=== PATIENT | female | born 1970 | race Hispanic/Latino ===

== ENCOUNTER 2018-09-29 00:58 | Emergency (ER) | payer BC ==
[~2018-09-29] VITALS: Ht 152.4 cm; Wt 83.6 kg
--- OUTSIDE RECORDS SUMMARY | 2018-09-29 01:00 | XMS REPORT | Continuity of Care Document ---
Author Author [facility] Interface Address Unknown Phone Unavailable Problems Problem Status Onset Date Classification Date Reported Comments Source Pain in throat 05/26/2018 Diagnosis 05/26/2018 [facility] Viral upper respiratory tract infection 05/26/2018 Diagnosis 05/26/2018 [facility] Body mass index 30+ - obesity 05/26/2018 Diagnosis 05/26/2018 [facility] Body Mass Index 30+ - Obesity 05/26/2018 Problem 05/26/2018 [facility] Pain in Throat 05/26/2018 Problem 05/26/2018 [facility] Viral Upper Respiratory Tract Infection 05/26/2018 Problem 05/26/2018 [facility] LLE 729.5 CALF PAIN Active 12/12/2013 [facility] Blood in urine Active Diagnosis 04/03/2014 [facility] BMI 34.0-34.9,adult Active Problem 11/18/2017 [facility] Routine general medical examination at health care facility Active Diagnosis 04/03/2014 [facility] Throat pain Active Diagnosis 02/26/2014 [facility] Strep throat Active Diagnosis 02/26/2014 [facility] Encntr for general adult medical exam w/o abnormal findings Active Diagnosis 11/10/2017 [facility] Screening for breast cancer Active Diagnosis 11/10/2017 [facility] Family history of diabetes mellitus Active Diagnosis 11/10/2017 [facility] Leg cramps Active Diagnosis 12/20/2013 [facility] Calf pain Active Diagnosis 12/20/2013 [facility] Body Mass Index 34.0-34.9, adult Active Problem 02/27/2015 [facility] BMI 35.0-35.9,adult Active Problem 06/14/2015 [facility] Fatigue Active Diagnosis 06/14/2015 [facility] Low back pain Active Diagnosis 02/11/2015 [facility] Upper respiratory infection Active Diagnosis 06/18/2014 [facility] Sore throat Active Diagnosis 06/18/2014 [facility] Left low back pain Active Diagnosis 01/31/2015 [facility] Medications Medication Details Route Status Patient Instructions Ordering Provider Order Date Source Cipro 1 tablet Orally Active 250 MG Orally every 12 hrs Jeyson Sifuentes 11/17/2017 [facility] Cipro 1 tablet Orally Active 500 mg Orally Twice a day Kendra 06/13/2015 [facility] Naproxen 1 tablet as needed Orally Active 500 mg Orally every 12 hrs Beaver 01/28/2015 [facility] Flexeril 1 tablet Orally Active 10 mg Orally Three times a day as needed for pain Beaver 01/28/2015 [facility] Augmentin 1 tablet Orally Active 875-125 MG Orally Twice a day Beaver 04/23/2014 [facility] Augmentin 1 tablet Orally Active 500-125 MG Orally Twice a day Beaver 01/17/2014 [facility] Flexeril 1 tablet Orally Active 10 mg Orally once a night as needed Beaver 12/17/2013 [facility] Aleve 1 tablet as needed Orally Active 220 MG Orally PRN Lewis [facility] Aleve 1 tablet as needed Orally Active 220 MG Orally PRN Kendra [facility] Lidocaine Hydrochloride 20 MG/ML Mucous Membrane Topical Solution Lidocaine Viscous 2 % mucosal solution Take 15 mL every 3 hours by oral route as needed. Active [facility] Prednisone 20 MG Oral Tablet prednisone 20 mg tablet Take 1 tablet twice a day by oral route as directed for 3 days. Active [facility] Allergies, Adverse Reactions, Alerts Substance Category Reaction Severity Reaction type Status Date Reported Comments Source Stan Hives Moderate to Severe Allergy to substance 05/26/2018 [facility] Immunizations Immunization Date Given Site Status Last Updated Comments Source influenza, injectable, quadrivalent 04/24/2018 completed [facility] Tdap 07/11/2013 completed [facility] Results Order Name Results Value Reference Range Date Interpretation Comments Source RESULT negative 05/26/2018 [facility] SWAB LOCATION Left and Right tonsillar pillars 05/26/2018 [facility] Ext Lower Venous Doppler Unilat US Ext Lower Venous Doppler Unilat US LEFT LOWER EXTREMITY VENOUS DOPPLER HX: calf pain COMMENT: The deep venous system of the left lower extremity was interrogated from inguinal ligament to the popliteal fossae utilizing high-resolution duplex sonography . The deep veins are readily visualized and easily compressible. There is normal spontaneous, phasic flow by spectral Doppler wave form analysis. This constitutes a negative exam. CONCLUSION: Negative left lower extremity venous Doppler. SL: 12 12/12/2013 - - Read by: Fredi Spence MD Dictated Date/time: 12/12/13 18:00 Electronically Signed by: Fredi Spence MD 12/12/13 18:01 FINAL REPORT [facility] Vital Signs Vital Sign Value Date Comments Source Diastolic (mm Hg) 74 05/26/2018 [facility] Height 60 05/26/2018 [facility] Systolic (mm Hg) 119 05/26/2018 [facility] Weight 180 05/26/2018 [facility] Weight 176 11/02/2017 [facility] Height 60 11/02/2017 [facility] Temperature Oral (F) 98.0 F 11/02/2017 [facility] Heart Rate 77 11/02/2017 [facility] Diastolic (mm Hg) 68 11/02/2017 [facility] Systolic (mm Hg) 120 11/02/2017 [facility] Weight 182 06/12/2015 [facility] Height 60 06/12/2015 [facility] Heart Rate 77 06/12/2015 [facility] Diastolic (mm Hg) 90 06/12/2015 [facility] Systolic (mm Hg) 112 06/12/2015 [facility] Weight 180 02/07/2015 [facility] Height 60 02/07/2015 [facility] Temperature Oral (F) 98.6 F 02/07/2015 [facility] Heart Rate 89 02/07/2015 [facility] Diastolic (mm Hg) 84 02/07/2015 [facility] Systolic (mm Hg) 120 02/07/2015 [facility] Weight 181 01/28/2015 [facility] Height 60 01/28/2015 [facility] Heart Rate 80 01/28/2015 [facility] Diastolic (mm Hg) 68 01/28/2015 [facility] Systolic (mm Hg) 100 01/28/2015 [facility] Weight 178 04/23/2014 [facility] Height 60 04/23/2014 [facility] Temperature Oral (F) 98.3 F 04/23/2014 [facility] Heart Rate 84 04/23/2014 [facility] Diastolic (mm Hg) 80 04/23/2014 [facility] Systolic (mm Hg) 122 04/23/2014 [facility] Weight 176 03/27/2014 [facility] Height 60 03/27/2014 [facility] Temperature Oral (F) 98.2 F 03/27/2014 [facility] Heart Rate 76 03/27/2014 [facility] Diastolic (mm Hg) 72 03/27/2014 [facility] Systolic (mm Hg) 122 03/27/2014 [facility] Weight 176 01/17/2014 [facility] Height 60 01/17/2014 [facility] Temperature Oral (F) 98.3 F 01/17/2014 [facility] Heart Rate 104 01/17/2014 [facility] Diastolic (mm Hg) 80 01/17/2014 [facility] Systolic (mm Hg) 110 01/17/2014 [facility] Weight 179 12/12/2013 [facility] Height 60 12/12/2013 [facility] Temperature Oral (F) 98.3 F 12/12/2013 [facility] Heart Rate 88 12/12/2013 [facility] Diastolic (mm Hg) 82 12/12/2013 [facility] Systolic (mm Hg) 128 12/12/2013 [facility] Encounters Location Location Details Encounter Type Encounter Number Reason For Visit Attending Provider ADM Date DC Date Status Source [facility] leg pain [id number] 12/12/2013 12/12/2013 [facility] leg pain [id number] 12/12/2013 12/12/2013 [facility] leg pain [id number] 12/12/2013 12/12/2013 [facility] leg pain [id number] 12/12/2013 12/12/2013 [facility] leg pain [id number] 12/12/2013 12/12/2013 [facility] leg pain [id number] 12/12/2013 12/12/2013 [facility] leg pain [id number] 12/12/2013 12/12/2013 [facility] leg pain [id number] 12/12/2013 12/12/2013 [facility] leg pain [id number] 12/12/2013 12/12/2013 [facility] leg pain [id number] 12/12/2013 12/12/2013 [facility] [id number] Faith Martinez 12/12/2013 12/13/2013 [facility] Lab result- Rx sent [id number] 12/17/2013 12/17/2013 [facility] Lab result- Rx sent [id number] 12/17/2013 12/17/2013 [facility]- Rx sent [id number] 12/17/2013 12/17/2013 [facility] Lab result- Rx sent [id number] 12/17/2013 12/17/[address] [facility] Lab result- Rx sent [id number] 12/17/2013 12/17/2013 [facility] Lab result- Rx sent [id number] 12/17/2013 12/17/[address] [facility] Lab result- Rx sent [id number] 12/17/2013 12/17/[address] [facility] Lab result- Rx sent [id number] 12/17/2013 12/17/2013 [facility] Lab result- Rx sent [id number] 12/17/2013 12/17/2013 [facility] Lab result- Rx sent [id number] 12/17/2013 12/17/2013 [facility] Lab result- Rx sent [id number] 12/17/2013 12/17/2013 [facility] SORE THROAT [id number] 01/17/2014 01/17/2014 [facility] SORE THROAT [id number] 01/17/2014 01/17/2014 [facility] SORE THROAT [id number] 01/17/2014 01/17/2014 [facility] SORE THROAT [id number] 01/17/2014 01/17/2014 [facility] SORE THROAT [id number] 01/17/2014 01/17/2014 [facility] SORE THROAT [id number] 01/17/2014 01/17/2014 [facility] SORE THROAT [id number] 01/17/2014 01/17/2014 [facility] SORE THROAT [id number] 01/17/2014 01/17/2014 [facility] SORE THROAT [id number] 01/17/2014 01/17/2014 [facility] PHYSICAL [id number] 03/27/2014 03/27/2014 [facility] PHYSICAL [id number] 03/27/2014 03/27/2014 [facility] PHYSICAL [id number] 03/27/2014 03/27/2014 [facility] PHYSICAL [id number] 03/27/2014 03/27/2014 [facility] PHYSICAL [id number] 03/27/2014 03/27/2014 [facility] PHYSICAL [id number] 03/27/2014 03/27/2014 [facility] PHYSICAL [id number] 03/27/2014 03/27/2014 [facility] PHYSICAL [id number] 03/27/2014 03/27/2014 [facility] Lab results- urine repeat [id number] 04/02/2014 04/02/2014 [facility] Lab results- urine repeat [id number] 04/02/2014 04/02/2014 [facility] Lab results- urine repeat [id number] 04/02/2014 04/02/2014 [facility] Lab results- urine repeat [id number] 04/02/2014 04/02/2014 [facility] Lab results- urine repeat [id number] 04/02/2014 04/02/2014 [facility] Lab results- urine repeat [id number] 04/02/2014 04/02/2014 [facility] Lab results- urine repeat [id number] 04/02/2014 04/02/2014 [facility] Lab results- urine repeat [id number] 04/02/2014 04/02/2014 [facility] SINUS [id number] 04/23/2014 04/23/2014 [facility] SINUS [id number] 04/23/2014 04/23/2014 [facility] SINUS [id number] 04/23/2014 04/23/2014 [facility] SINUS [id number] 04/23/2014 04/23/2014 [facility] SINUS [id number] 04/23/2014 04/23/2014 [facility] SINUS [id number] 04/23/2014 04/23/2014 [facility] BACK PAIN [id number] 01/28/2015 01/28/2015 [facility] BACK PAIN [id number] 01/28/2015 01/28/2015 [facility] BACK PAIN [id number] 01/28/2015 01/28/2015 [facility] BACK PAIN [id number] 01/28/2015 01/28/2015 [facility] BACK PAIN [id number] 01/28/2015 01/28/2015 [facility] XRAY RESULTS [id number] 02/07/2015 02/07/2015 [facility] XRAY RESULTS [id number] 02/07/2015 02/07/2015 [facility] XRAY RESULTS [id number] 02/07/2015 02/07/2015 [facility] XRAY RESULTS [id number] 02/07/2015 02/07/2015 [facility] need referral [id number] 02/26/2015 02/26/2015 [facility] need referral [id number] 02/26/2015 02/26/2015 [facility] need referral [id number] 02/26/2015 02/26/2015 [facility] THYROID CHECK [id number] 06/12/2015 06/12/2015 [facility] THYROID CHECK [id number] 06/12/2015 06/12/2015 [facility] Unknown [id number] 06/13/2015 06/13/2015 [facility] Unknown [id number] 06/13/2015 06/13/2015 [facility] [place] [facility] - [id number] Vásquez, [facility] [address] [place] [address], Ph. [id number] Cristela Vásquez 05/26/2018 [facility] Procedures Procedure Code Date Perfomer Comments Source Appendectomy [facility]
--- OUTSIDE RECORDS SUMMARY | 2018-09-29 01:01 | XMS REPORT ---
Author Author Eva Gardner Organization [employer] Address Unknown Phone Unavailable Care Team Providers Care Tosser Name Role Phone Eva Gardner Unavailable Allergies, Adverse Reactions, Alerts Substance Reaction Event Type Guaifenesin Info Not Available Drug Allergy Encounters Encounter Location Date PHYSICAL [facility] Mar 27, 2014 Lab results- urine repeat [facility] Apr 02, [address] [facility] Apr 23, [address] [facility] January 28, 2015 Lab result- Rx sent [facility] December 17, [address] [facility] Jun 13, [address] [facility] December 12, [address] [facility] January 17, [address] [facility] Jun 12, [address] [facility] February 07, [address] [facility] Feb 26, 2015 Problems Problem Type Condition ICD-9 Code Onset Dates Condition Status Assessment Fatigue R53.83 Active Assessment BMI 35.0-35.9,adult Z68.35 Active Problem BMI 35.0-35.9,adult Z68.35 Active Medications Medication Code System Code Instructions Start Date End Date Status Dosage Aleve MEDISPAN [address]-85 220 MG Orally PRN Active 1 tablet as needed Social History Social History Element Qualifiers Date Reported Last Bone Density: . never Jun 12, 2015 Depression Screening: . negative Jun 12, 2015 Flu Vaccine: . 2014Jun 12, 2015 Last Colonoscopy: . never Jun 12, 2015 children . 2 Jun 12, 2015 Tobacco Use: . Are you a: never smoker Jun 12, 2015 Marital Status: . Jun 12, 2015 Vital Signs Date/Time: Jun 12, 2015 Weight 182 lbs Height 60 in Cardiac Monitoring Heart Rate 77 /min Blood Pressure Diastolic 90 mm Hg Blood Pressure Systolic 112 mm Hg Summary Purpose eClinicalWorks Submission
--- OUTSIDE RECORDS SUMMARY | 2018-09-29 01:01 | XMS REPORT | Encounter Summary ---
Author Organization Unknown Address [address] [place] [id number] Phone [phone] Care Team Providers Care Call Center Receptionist Name Role Phone Faith Martinez 3 [phone] Reason for Visit Medical Complaint Instructions 1. Viral upper respiratory tract infection prednisone 20 mg tablet 2. Pain in throat rapid strep group A, throat sore throat: care instructions Lidocaine Viscous 2 % mucosal solution 3. Body mass index 30+ - obesity body mass index: care instructions learning about healthy weight Discussion Note Pt is in NAD; Verbalizes understanding of all instructions with no questions at this time. Plan of Care Patient Instructions Stop advil cold and sinus. Take tylenol over the counter for pain/headache/fever as per pacakge insert. Take flonase as needed for congestion, runny nose, sneezing and watery eyes. [place] one spray in each nostril twice a day. Take a warm, steamy shower, blow your nose thereafter, and spray in each nostril. Tilt your head up for about 10 seconds and breath through your mouth. Do not sniff or snort the medication in or else the medication will go to your throat and not be absorbed appropriately. Take steroids with food as directed. Do not take ibuprofen or naproxen while on steroids. Take medications as prescribed and follow up with a PCP within 2-3 if symptoms worsen as discussed. Recommend follow a low sodium/fat/carb diet and exercise 30-45 mins/d 3-4 days a week once symptoms resolve. Reminders Provider Appointments None recorded. Lab Rapid Strep Group a, Throat 05/26/2018 [facility] Referral None recorded. Procedures None recorded. Surgeries None recorded. Imaging None recorded. Medications Name Start Date Lidocaine Viscous 2 % mucosal solution Take 15 mL every 3 hours by oral route as needed. prednisone 20 mg tablet Take 1 tablet twice a day by oral route as directed for 3 days. Medications Administered None recorded. Vitals Height Weight BMI Blood Pressure 5 ft 180 lbs 35.2 kg/m2 119/74 mm[Hg] Lab Results Date Name Specimen Result Interpretation Description Value Range Status Address Rapid Strep Group a, Throat Result negative [facility]: [address] [place] [address] Swab Location Left and Right tonsillar pillars [facility]: [address] [place] [address] Allergies Code Code System Name Reaction Severity Status Onset 5032 RxNorm Higinioaifenfox Hives Moderate to Severe Active Problems Name Status Onset Date Source Body Mass Index 30+ - Obesity Active 05/26/2018 Pain in Throat Active 05/26/2018 Viral Upper Respiratory Tract Infection Active 05/26/2018 Procedures Date Name Performed by Appendectomy Information not available Information not available Vaccine List Vaccine Type influenza, injectable, quadrivalent 04/24/2018 Tdap 07/11/2013 Social History Smoking Status Never Smoker Past Encounters 05/26/2018 Viral Upper Respiratory Tract Infection; Pain in Throat; Body Mass Index 30+ - Obesity Cristela Vásquez, ENVIRONMENTAL TEST TECHNICIAN-C: [address] [place] [address], Ph. History of Present Illness [id number]-Ebw Reported By: Patient HPI: Duration: 3 days. Context: no ill contacts, no tick/insect bites, no recent travel, no new medications. Associated Symptoms: no fever/chills, no muscle aches, no rash, no lethargy, headache, cold symptoms, nasal passage blockage (stuffiness), nasal discharge; sore throat, bilateral ear pressure, sinus pressure, and headache. Modifying Factors nothing gives relief Note:
Review of Systems:ROS as noted in the HPI Review of Systems Basic Reported By: Patient Physical Exam Adult Basic, Adult Female Complete Reported By: Patient Constitutional: General Appearance: obese. Level of Distress: NAD. Ambulation: ambulating normally Psychiatric: Mental Status: active and alert. Orientation: to time, to place, to person Eyes: Lids and Conjunctivae: non-injected, no discharge, no pallor. Corneas: grossly intact. Lens: clear Huk-Ejyw-Humfh-Throat: Ears: no lesions on external ear, no outer ear tenderness, EACs clear, TMs clear. Hearing: no hearing loss. Nose: no lesions on external nose, nares patent, no septal deviation, nasal passages clear, no sinus tenderness, nasal discharge--rhinorrhea, post nasal drip; B/L NTs pink and edematous. Lips, Teeth, and Gums: no mouth or lip ulcers, no bleeding gums, normal dentition. Oropharynx: moist mucous membranes, no erythema, no exudates, tonsils not enlarged Neck: Neck: supple. Lymph Nodes: no cervical LAD Lungs: Respiratory effort: no dyspnea, no tachypnea, no use of accessory muscles, no intercostal retractions. Auscultation: breath sounds normal Cardiovascular: Heart Auscultation: RRR, no murmurs Neurologic: Gait and Station: normal gait, normal station. Cranial Nerves: grossly intact
--- OUTSIDE RECORDS SUMMARY | 2018-09-29 01:01 | XMS REPORT ---
Author Author Sakshi Boyce Organization [employer] Address Unknown Phone Unavailable Care Team Providers Care Grapple Skidder Operator Name Role Phone Sakshi Boyce Unavailable Encounters Encounter Location Date PHYSICAL [facility] Mar 27, 2014 Lab results- urine repeat [facility] Apr 02, 2014 Lab result- Rx sent [facility] December 17, 2013 leg pain [facility] December 12, 2013 SORE THROAT [facility] January 17, 2014 Problems Problem Type Condition ICD-9 Code Onset Dates Condition Status Assessment Blood in urine 599.70 Active Social History Social History Element Qualifiers Date Reported Fall Risk: . 12/2013Mar 27, 2014 Flu Vaccine: . 2012Mar 27, 2014 children . 2 Mar 27, 2014 Marital Status: . Mar 27, 2014 Summary Purpose eClinicalWorks Submission
--- OUTSIDE RECORDS SUMMARY | 2018-09-29 01:01 | XMS REPORT ---
Author Author Sakshi Boyce Organization [employer] Address Unknown Phone Unavailable Care Team Providers Care Air Traffic Coordinator Name Role Phone Sakshi Boyce CP Unavailable Allergies, Adverse Reactions, Alerts Substance Reaction Event Type Guaifenesin Info Not Available Drug Allergy Encounters Encounter Location Date PHYSICAL [facility] Mar 27, 2014 Lab results- urine repeat [facility] Apr 02, 2014 SINUS [facility] Apr 23, 2014 Lab result- Rx sent [facility] December 17, 2013 leg pain [facility] December 12, 2013 SORE THROAT [facility] January 17, 2014 Problems Problem Type Condition ICD-9 Code Onset Dates Condition Status Assessment Upper respiratory infection 465.9 Active Assessment Sore throat 462 Active Problem Body Mass Index 34.0-34.9, adult V85.34 Active Medications Medication Code System Code Instructions Start Date End Date Status Dosage Augmentin MEDISPAN [address]-88 875-125 MG Orally Twice a day Apr 23, 2014 Apr 30, 2014 Active 1 tablet Social History Social History Element Qualifiers Date Reported Fall Risk: . 12/2013Apr 23, 2014 Flu Vaccine: . 2012Apr 23, 2014 children . 2 Apr 23, 2014 Marital Status: . Apr 23, 2014 Family history Qualifier Description Comment Date Reported Father alive Comment not available Apr 23, 2014 Vital Signs Date/Time: Apr 23, 2014 Weight 178 lbs Height 60 in Temperature 98.3 F Cardiac Monitoring Heart Rate 84 /min Blood Pressure Diastolic 80 mm Hg Blood Pressure Systolic 122 mm Hg Summary Purpose eClinicalWorks Submission
--- OUTSIDE RECORDS SUMMARY | 2018-09-29 01:01 | XMS REPORT | Summary of Care ---
Author Organization Unknown Address Unknown Phone Unavailable Encounter [facility] Encntr_kb(DEBORAH) [id number] Date(s): 12/12/13 - 12/12/13 [facility] [address] Discharge Disposition: Home Physician Attending: Faith Martinez DO Physician_Referring: Faith Martinez DO Reason for Visit LLE 729.5 CALF PAIN Problem List No data available for this section Allergies, Adverse Reactions, Alerts No data available for this section Medications No data available for this section Medications Administered During Your Visit No data available for this section Immunizations No data available for this section
--- OUTSIDE RECORDS SUMMARY | 2018-09-29 01:01 | XMS REPORT ---
Author Author Faith Martinez [facility] eClinical[employer] Address Unknown Phone Unavailable Care Team Providers Care Tipple Operator Name Role Phone Faith Martinez Unavailable Encounters Encounter Location Date PHYSICAL [facility] Mar 27, 2014 Lab results- urine repeat [facility] Apr 02, 2014 SINUS [facility] Apr 23, 2014 BACK PAIN [facility] January 28, 2015 Lab result- Rx sent [facility] December 17, 2013 leg pain [facility] December 12, 2013 SORE THROAT [facility] January 17, 2014 XRAY RESULTS [facility] February 07, 2015 need referral [facility] Feb 26, 2015 Problems Problem Type Condition ICD-9 Code Onset Dates Condition Status Problem Body Mass Index 34.0-34.9, adult V85.34 Active Social History Social History Element Qualifiers Date Reported Fall Risk: . 12/2013February 07, 2015 Flu Vaccine: . 2012February 07, 2015 children . 2 February 07, 2015 Marital Status: . February 07, 2015 Summary Purpose eClinicalWorks Submission
--- OUTSIDE RECORDS SUMMARY | 2018-09-29 01:01 | XMS REPORT ---
Author Author Faith Aguilera Organization [employer] Address Unknown Phone Unavailable Care Team Providers Care Assistant Sales Center Manager Name Role Phone Faith Aguilera Unavailable Allergies No Known Allergies Problems Problem Type Condition Code Onset Dates Condition Status Problem BMI 34.0-34.9,adult Z68.34 Active Medications Medication Code System Code Instructions Start Date End Date Status Dosage Cipro [facility] [id number] 250 MG Orally every 12 hrs November 17, 2017 November 22, 2017 Active 1 tablet Results No Known Results Summary Purpose eClinicalWorks Submission
--- OUTSIDE RECORDS SUMMARY | 2018-09-29 01:01 | XMS REPORT ---
Author Author Sakshi Boyce Organization [employer] Address Unknown Phone Unavailable Care Team Providers Care Anime Designer Name Role Phone Sakshi Boyce Unavailable Encounters Encounter Location Date Lab result- Rx sent [facility] December 17, 2013 Medications Medication Code System Code Instructions Start Date End Date Status Dosage Flexeril MEDISPAN [address]-52 10 mg Orally once a night as needed December 17, 2013 Feb 15, 2014 Active 1 tablet Social History Social History Element Qualifiers Date Reported Fall Risk: . 12/2013December 12, 2013 Flu Vaccine: . 2012December 12, 2013 children . 2 December 12, 2013 Marital Status: . December 12, 2013 Summary Purpose eClinicalWorks Submission
--- OUTSIDE RECORDS SUMMARY | 2018-09-29 01:01 | XMS REPORT ---
Author Author Sakshi Boyce Organization [employer] Address Unknown Phone Unavailable Care Team Providers Care Drinking Water Technician Name Role Phone Sakshi Boyce CP Unavailable Allergies, Adverse Reactions, Alerts Substance Reaction Event Type Guaifenesin Info Not Available Drug Allergy Encounters Encounter Location Date Lab result- Rx sent [facility] December 17, 2013 leg pain [facility] December 12, 2013 SORE THROAT [facility] January 17, 2014 Problems Problem Type Condition ICD-9 Code Onset Dates Condition Status Assessment Throat pain 784.1 Active Assessment Strep throat 034.0 Active Medications Medication Code System Code Instructions Start Date End Date Status Dosage Augmentin MEDISPAN [address]-06 500-125 MG Orally Twice a day January 17, 2014 January 27, 2014 Active 1 tablet Flexeril MEDISPAN [address]-69 10 mg Orally once a night as needed December 17, 2013 Feb 15, 2014 Active 1 tablet Social History Social History Element Qualifiers Date Reported Fall Risk: . 12/2013January 17, 2014 Flu Vaccine: . 2012January 17, 2014 children . 2 January 17, 2014 Marital Status: . January 17, 2014 Family history Qualifier Description Comment Date Reported Father alive Comment not available January 17, 2014 Vital Signs Date/Time: January 17, 2014 Weight 176 lbs Height 60 in Temperature 98.3 F Cardiac Monitoring Heart Rate 104 /min Blood Pressure Diastolic 80 mm Hg Blood Pressure Systolic 110 mm Hg Results DEPO MEDROL 40MG X3 UNITS ROCEPHIN 250MG X2 RAPID STREP DECADRON 1MGx4 Summary Purpose eClinicalWorks Submission
--- OUTSIDE RECORDS SUMMARY | 2018-09-29 01:01 | XMS REPORT ---
Author Author Zoran Saucedo Organization [employer] Address Unknown Phone Unavailable Care Team Providers Care Sheet Metal Supervisor Name Role Phone Zoran Saucedo CP Unavailable Allergies, Adverse Reactions, Alerts Substance Reaction Event Type Guaifenesin Info Not Available Drug Allergy Problems Problem Type Condition Code Onset Dates Condition Status Assessment Encntr for general adult medical exam w/o abnormal findings Z00.00 Active Assessment Screening for breast cancer Z12.39 Active Problem BMI 34.0-34.9,adult Z68.34 Active Assessment Family history of diabetes mellitus Z83.3 Active Assessment BMI 34.0-34.9,adult Z68.34 Active Medications Medication Code System Code Instructions Start Date End Date Status Dosage Aleve [facility] [id number] 220 MG Orally PRN Active 1 tablet as needed Vital Signs Date/Time: November 02, 2017 BMI 34.37 Index Weight 176 lbs Height 60 in Temperature 98.0 F Cardiac Monitoring Heart Rate 77 /min Blood Pressure Diastolic 68 mm Hg Blood Pressure Systolic 120 mm Hg Results No Known Results Summary Purpose eClinicalWorks Submission
--- OUTSIDE RECORDS SUMMARY | 2018-09-29 01:01 | XMS REPORT ---
Author Author Eva Gardner [employer] Address Unknown Phone Unavailable Care Team Providers Care Quill Stripper Name Role Phone Eva Gardner CP Unavailable Encounters Encounter Location Date PHYSICAL [facility] Mar 27, 2014 Lab results- urine repeat [facility] Apr 02, 2014 SINUS [facility] Apr 23, 2014 BACK PAIN [facility] January 28, 2015 Lab result- Rx sent [facility] December 17, 2013 Unknown [facility] Jun 13, 2015 leg pain [facility] December 12, 2013 SORE THROAT [facility] January 17, 2014 THYROID CHECK [facility] Jun 12, 2015 XRAY RESULTS [facility] February 07, 2015 need referral [facility] Feb 26, 2015 Problems Problem Type Condition ICD-9 Code Onset Dates Condition Status Problem BMI 35.0-35.9,adult Z68.35 Active Medications Medication Code System Code Instructions Start Date End Date Status Dosage Cipro MEDISPAN [address]-03 500 mg Orally Twice a day Jun 13, 2015 Jun 18, 2015 Active 1 tablet Social History Social History Element Qualifiers Date Reported Last Bone Density: . never Jun 12, 2015 Depression Screening: . negative Jun 12, 2015 Flu Vaccine: . 2014Jun 12, 2015 Last Colonoscopy: . never Jun 12, 2015 children . 2 Jun 12, 2015 Tobacco Use: . Are you a: never smoker Jun 12, 2015 Marital Status: . Jun 12, 2015 Summary Purpose eClinicalWorks Submission
--- OUTSIDE RECORDS SUMMARY | 2018-09-29 01:01 | XMS REPORT ---
Author Author Sakshi Boyce Organization [employer] Address Unknown Phone Unavailable Care Team Providers Care Linseed Oil Temperer Name Role Phone Sakshi Boyce CP Unavailable Allergies, Adverse Reactions, Alerts Substance Reaction Event Type Guaifenesin Info Not Available Drug Allergy Encounters Encounter Location Date PHYSICAL [facility] Mar 27, 2014 Lab results- urine repeat [facility] Apr 02, 2014 Lab result- Rx sent [facility] December 17, [address] [facility] December 12, [address] [facility] January 17, 2014 Problems Problem Type Condition ICD-9 Code Onset Dates Condition Status Assessment Routine general medical examination at health care facility V70.0 Active Social History Social History Element Qualifiers Date Reported Fall Risk: . 12/2013Mar 27, 2014 Flu Vaccine: . 2012Mar 27, 2014 children . 2 Mar 27, 2014 Marital Status: . Mar 27, 2014 Vital Signs Date/Time: Mar 27, 2014 Weight 176 lbs Height 60 in Temperature 98.2 F Cardiac Monitoring Heart Rate 76 /min Blood Pressure Diastolic 72 mm Hg Blood Pressure Systolic 122 mm Hg Summary Purpose eClinicalWorks Submission
--- OUTSIDE RECORDS SUMMARY | 2018-09-29 01:01 | XMS REPORT ---
Author Author Sakshi Boyce [facility] eClinicalWorks Address Unknown Phone Unavailable Care Team Providers Care Studio Owner Name Role Phone Sakshi Boyce Unavailable Allergies, Adverse Reactions, Alerts Substance Reaction Event Type Guaifenesin Info Not Available Drug Allergy Encounters Encounter Location Date Lab result- Rx sent [facility] December 17, 2013 leg pain [facility] December 12, 2013 Problems Problem Type Condition ICD-9 Code Onset Dates Condition Status Assessment Leg cramps 729.82 Active Assessment Calf pain 729.5 Active Social History Social History Element Qualifiers Date Reported Fall Risk: . 12/2013December 12, 2013 Flu Vaccine: . 2012December 12, 2013 children . 2 December 12, 2013 Marital Status: . December 12, 2013 Vital Signs Date/Time: December 12, 2013 Weight 179 lbs Height 60 in Temperature 98.3 F Cardiac Monitoring Heart Rate 88 /min Blood Pressure Diastolic 82 mm Hg Blood Pressure Systolic 128 mm Hg Results COMPREHENSIVE METABOLIC PANEL ALBUMIN/GLOBULIN RATIO(-1.0-2.5 (calc)) 1.2 GLOBULIN(-1.9-3.7 g/dL (calc)) 3.4 ALKALINE PHOSPHATASE(-33-115 U/L) 63 BILIRUBIN, TOTAL(-0.2-1.2 mg/dL) 0.5 CHLORIDE(-98-110 mmol/L) 102 ALT(-6-29 U/L) 18 POTASSIUM(-3.5-5.3 mmol/L) 3.9 AST(-10-30 U/L) 18 SODIUM(-135-146 mmol/L) 137 BUN/CREATININE RATIO(-6-22 (calc)) NOT APPLICABLE eGFR (-> OR=60 mL/min/1.73m2) 92 CALCIUM(-8.6-10.2 mg/dL) 9.2 CARBON DIOXIDE(-19-30 mmol/L) 24 ALBUMIN(-3.6-5.1 g/dL) 4.1 PROTEIN, TOTAL(-6.1-8.1 g/dL) 7.5 GLUCOSE(-65-99 mg/dL) 94 UREA NITROGEN (BUN)(-7-25 mg/dL) 9 CREATININE(-0.50-1.10 mg/dL) 0.90 eGFR NON-AFR. BRITISH(-> OR=60 mL/min/1.73m2) 79 CBC (H/H, RBC, INDICES, WBC, PLT) MCHC(-32.0-36.0 g/dL) 34.0 MCH(-27.0-33.0 pg) 29.4 PLATELET COUNT(-140-400 Thousand/uL) 268 RDW(-11.0-15.0 %) 14.6 HEMATOCRIT(-35.0-45.0 %) 39.6 MCV(-80.0-100.0 fL) 86.5 RED BLOOD CELL COUNT(-3.80-5.10 Million/uL) 4.57 HEMOGLOBIN(-11.7-15.5 g/dL) 13.5 WHITE BLOOD CELL COUNT(-3.8-10.8 Thousand/uL) 10.9 Summary Purpose eClinicalWorks Submission
--- OUTSIDE RECORDS SUMMARY | 2018-09-29 01:01 | XMS REPORT ---
Author Author Sakshi Boyce eClinical[employer] Address Unknown Phone Unavailable Care Team Providers Care Network Security Consultant Name Role Phone Sakshi Boyce Unavailable Allergies, Adverse Reactions, Alerts Substance Reaction Event Type Guaifenesin Info Not Available Drug Allergy Encounters Encounter Location Date PHYSICAL [facility] Mar 27, 2014 Lab results- urine repeat [facility] Apr 02, 2014 SINUS [facility] Apr 23, 2014 BACK PAIN [facility] January 28, 2015 Lab result- Rx sent [facility] December 17, 2013 leg pain [facility] December 12, 2013 SORE THROAT [facility] January 17, 2014 XRAY RESULTS [facility] February 07, 2015 Problems Problem Type Condition ICD-9 Code Onset Dates Condition Status Assessment Low back pain 724.2 Active Problem Body Mass Index 34.0-34.9, adult V85.34 Active Medications Medication Code System Code Instructions Start Date End Date Status Dosage Naproxen MEDISPAN [address]-29 500 mg Orally every 12 hrs January 28, 2015 Feb 11, 2015 Active 1 tablet as needed Flexeril Unknown 0 10 mg Orally Three times a day as needed for pain January 28, 2015 Feb 27, 2015 Active 1 tablet Aleve MEDISPAN [address]-68 220 MG Orally PRN Active 1 tablet as needed Social History Social History Element Qualifiers Date Reported Fall Risk: . 12/2013February 07, 2015 Flu Vaccine: . 2012February 07, 2015 children . 2 February 07, 2015 Marital Status: . February 07, 2015 Family history Qualifier Description Comment Date Reported Maternal Grandmother Comment not available February 07, 2015 Paternal Grandmother Comment not available February 07, 2015 Siblings Comment not available February 07, 2015 Maternal Grandfather Comment not available February 07, 2015 Children Comment not available February 07, 2015 Father alive Comment not available February 07, 2015 Paternal Grandfather Comment not available February 07, 2015 Mother Comment not available February 07, 2015 Other: Comment not available February 07, 2015 Vital Signs Date/Time: February 07, 2015 Weight 180 lbs Height 60 in Temperature 98.6 F Cardiac Monitoring Heart Rate 89 /min Blood Pressure Diastolic 84 mm Hg Blood Pressure Systolic 120 mm Hg Summary Purpose eClinicalWorks Submission
--- OUTSIDE RECORDS SUMMARY | 2018-09-29 01:01 | XMS REPORT ---
Author Author Sakshi Boyce e[employer] Address Unknown Phone Unavailable Care Team Providers Care Retread Mold Operator Name Role Phone Sakshi Boyce Unavailable Allergies, Adverse Reactions, Alerts Substance Reaction Event Type Guaifenesin Info Not Available Drug Allergy Encounters Encounter Location Date PHYSICAL [facility] Mar 27, 2014 Lab results- urine repeat [facility] Apr 02, 2014 SINUS [facility] Apr 23, 2014 BACK PAIN [facility] January 28, 2015 Lab result- Rx sent [facility] December 17, 2013 leg pain [facility] December 12, 2013 SORE THROAT [facility] January 17, 2014 Problems Problem Type Condition ICD-9 Code Onset Dates Condition Status Assessment Left low back pain 724.2 Active Problem Body Mass Index 34.0-34.9, adult V85.34 Active Medications Medication Code System Code Instructions Start Date End Date Status Dosage Naproxen MEDISPAN [address]-56 500 mg Orally every 12 hrs January 28, 2015 Feb 11, 2015 Active 1 tablet as needed Aleve MEDISPAN [address]-16 220 MG Orally PRN Active 1 tablet as needed Flexeril Unknown 0 10 mg Orally Three times a day as needed for pain January 28, 2015 Feb 27, 2015 Active 1 tablet Social History Social History Element Qualifiers Date Reported Fall Risk: . 12/2013January 28, 2015 Flu Vaccine: . 2012January 28, 2015 children . 2 January 28, 2015 Marital Status: . January 28, 2015 Family history Qualifier Description Comment Date Reported Maternal Grandmother Comment not available January 28, 2015 Paternal Grandmother Comment not available January 28, 2015 Siblings Comment not available January 28, 2015 Maternal Grandfather Comment not available January 28, 2015 Children Comment not available January 28, 2015 Father alive Comment not available January 28, 2015 Paternal Grandfather Comment not available January 28, 2015 Mother Comment not available January 28, 2015 Other: Comment not available January 28, 2015 Vital Signs Date/Time: January 28, 2015 Weight 181 lbs Height 60 in Cardiac Monitoring Heart Rate 80 /min Blood Pressure Diastolic 68 mm Hg Blood Pressure Systolic 100 mm Hg Results Lumbar AP/LAT Xray Summary Purpose eClinicalWorks Submission
[2018-09-29] MEDS ORDERED: ONDANSETRON HCL INJ 2MG/ML 2ML 2 MG/ML VIAL IV STA (01:32)
[2018-09-29] MEDS ORDERED: KETOROLAC TROMETHAMINE 30 MG/ML VIAL IV STA (01:32)
[2018-09-29] MEDS ORDERED: SODIUM CHLORIDE 0.9% 1000ML 1,000 ML IV SCH (01:45)
--- NOTE | 2018-09-29 02:26 | Diagnostic Imaging Report ---
EXAMINATION: CT of the abdomen and pelvis without contrast. TECHNIQUE: Spiral CT images of the abdomen and pelvis were performed from the lung bases to the lesser trochanters. No intravenous contrast was given per renal stone protocol. Coronal and sagittal reformatted images were obtained. COMPARISON: None. CLINICAL HISTORY:Right flank pain, abdominal pain DISCUSSION: ABSENCE OF INTRAVENOUS CONTRAST DECREASES SENSITIVITY FOR DETECTION OF FOCAL LESIONS AND VASCULAR PATHOLOGY. ABDOMEN/PELVIS: LOWER THORAX: 4-5 mm pulmonary nodule in the posterior right lower lobe (series 2, image 8). 3 mm pulmonary nodule in the lateral right lower lobe (series 2, image 4). Otherwise, lung bases are clear. HEPATOBILIARY: 7 mm fluid density lesion in hepatic segment II (series 2, image 17), consistent with simple cysts. No other focal lesions. No intra or extrahepatic biliary ductal dilation. GALLBLADDER: No radio-opaque stones or sludge. No wall thickening. SPLEEN: No splenomegaly. PANCREAS: No focal masses or ductal dilatation. ADRENALS: No adrenal nodules. KIDNEYS/URETERS: No renal or ureteral calculi, hydronephrosis or obstruction. No renal contour abnormalities or significant perinephric stranding. PELVIC ORGANS/BLADDER: Bladder is unremarkable. Uterus is unremarkable. No adnexal masses.. Pelvic phleboliths. PERITONEUM/RETROPERITONEUM: No free air or fluid. LYMPH NODES: No intra-abdominal,retroperitoneal, pelvic or inguinal lymphadenopathy. VESSELS: Unremarkable for noncontrast exam. GI TRACT: No bowel dilation or evidence of obstruction. No pericolonic inflammatory changes. A few scattered colonic diverticula, in the ascending, descending and sigmoid colon, without diverticulitis. Stomach is unremarkable. BONES AND SOFT TISSUES: No aggressive lytic lesions. Posterior fusion hardware L4-L5. Soft tissues are unremarkable. IMPRESSION: 1. No renal, ureteral or bladder calculi. No hydronephrosis or obstruction. 2. No acute abdominopelvic abnormalities in this noncontrast exam. 3. 3 and 4-5 mm pulmonary nodules in the right lower lobe. If the patient is low risk, no further follow-up is indicated per Fleischner Society 2017 guidelines. Signed by: Dr. Alexis Cerna M.D. on 09/29/2018 2:23 AM
--- NOTE | 2018-09-29 03:43 | Diagnostic Imaging Report ---
EXAM: Right Upper Quadrant Ultrasound INDICATION: Right upper quadrant pain ^[id number] ^[id number] COMPARISON: CT abdomen and pelvis without contrast 09/29/2018 TECHNIQUE: Transverse and longitudinal images of the right upper abdomen were obtained. FINDINGS: Liver: Size: 15.8 cm in the right midclavicular line, minimally enlarged Appearance: Increased echogenicity, smooth contour Mass: No focal masses Gallbladder: Stones/Sludge: None Wall: 0.2 cm Appearance: No wall thickening, pericholecystic fluid or hydrops. Sonographic Verma's Sign: Negative Bile Ducts: Intrahepatic Ducts: No dilatation Extrahepatic Ducts: Common bile duct measures 0.3 cm, no dilatation Pancreas: Visualized portions of the pancreatic neck and proximal body are normal. Kidneys: Length: Right 9.5 cm Echogenicity: Normal Collecting System: No hydronephrosis Stone: None Cyst/Mass: None Vessels: Aorta: Visualized portions are normal Inferior Vena Cava: Visualized portions are normal Main Portal Vein: 0.7 cm, normal size with hepatopetal flow. Free Fluid: No ascites or pleural effusion IMPRESSION: 1. Minimally enlarged liver with increased echogenicity, consistent with simple cysts. No focal lesions. 2. No sonographic evidence of cholelithiasis or cholecystitis. Signed by: Dr. Alexis Cerna M.D. on 09/29/2018 3:40 AM
[2018-09-29 04:12] VITALS: BP 139/94
== END 2018-09-29 04:12 | disposition home or self-care (01) ==
LOC: FSED 00:58
DX: R10.11 Right upper quadrant pain (principal)
CPT/HCPCS: 74176; 76705; 80053; 80076; 81003; 85025; 96374; 96375; 99284